=== PATIENT | male | born 2000 | race Asian ===

== ENCOUNTER 2022-09-07 18:41 | Emergency (ER) | payer BC ==
[~2022-09-07] VITALS: Ht 182.9 cm; Wt 86.2 kg
[2022-09-07 18:54] VITALS: BP_SYST 119
--- NOTE | 2022-09-07 18:57 | NUR ---
Patient to ER bed [address] to [facility] for evaluation. Side rails up. Report given to SONY TREVIÑO.
--- NOTE | 2022-09-07 19:00 | NUR ---
ER examining patient in the [address].
[2022-09-07] MEDS ORDERED: DIPHTH,PERTUSS(ACELL),TET VAC 0.5 ML VIAL (Tdap) I.M. ONE (19:15)
[2022-09-07] MEDS: BACITRACIN 1 GM OINT TP ONE ×2 (19:42→20:29)
[2022-09-07] MEDS ORDERED: BACITRACIN 1 GM OINT TP ONE (20:17)
[2022-09-07 20:31] VITALS: BP_SYST 120
--- NOTE | 2022-09-07 20:47 | NUR ---
Patient given written and verbal discharge instructions and verbalizes understanding. ER MD discussed with patient the results and treatment provided. Patient in stable condition. ID arm band removed. no Rx of given. Patient educated on pain management and to follow up with PMD. Pain Scale 0/10. Opportunity for questions provided and answered. Medication side effect fact sheet provided.
== END 2022-09-07 20:47 | disposition home or self-care (01) ==
LOC: SED 18:41
DX: S61.412A Laceration without foreign body of left hand, initial encounter (principal); Z79.899 Other long term (current) drug therapy; W25.XXXA Contact with sharp glass, initial encounter; Y93.89 Activity, other specified; Y92.89 Other specified places as the place of occurrence of the external cause; Y99.8 Other external cause status
CPT/HCPCS: 90715; 99283